=== PATIENT | female | born 1950 | race Caucasian/White ===

== ENCOUNTER → 2016-09-10 | Day surgery (SDC) | payer MEDICARE, OTHER ==
--- NOTE | 2016-09-07 02:27 | CR ---
DATE OF CONSULTATION: 08/27/2016 Preoperative consultation for cataract extractions on 09/10/2015 and 09/24/[address] Mariee at [facility] ([facility]). Dear Dr. Mariee: Thank you for asking me to see Ms. Mireya Gilliland in consultation prior to her cataract extractions. As you know, Ms. Gilliland is a 66-year-old female with a past medical history of hypertension, prediabetes, obesity who reports that she has been in her usual state of good health. Patient notes that she has asthma. She is dyspneic with activity. She uses her Ventolin with exercise. She blames much of her dyspnea on her obesity and deconditioning. Patient has hypertension. She takes her hydrochlorothiazide every couple of days. She is on lisinopril 5 mg a day. She has an occasional palpitation but no associated lightheadedness or shortness of breath with this. Patient has history of allergies. She takes Zyrtec as needed. Patient has history of dry eyes. This is chronic and stable. The patient has prediabetes. She denies polyuria, polyphagia, or polydipsia. Her home blood sugars run 103-117 at the highest. Patient reports longstanding history of a heart murmur. She is not aware that it is pathologic. REVIEW OF SYSTEMS: Otherwise, negative. Denies fevers or chills, chest pain, nausea, vomiting, change in bowels. PAST MEDICAL HISTORY: 1. Osteoarthritis. 2. Bursitis left shoulder status post cortisone injection. 3. Menopausal. Last menstrual period (LMP) 03/1998. 4. Left meniscal repair, Dr. Bender, 04/2000. 5. Appendectomy. 6. Prediabetes. 7. Osteopenia. 8. Hyperlipidemia. 9. Hypertension. 10. Anxiety neurosis. 11. Osteopenia. 12. Moderate restrictive ventilatory defect 07/22/2011 with an FEV1 of 62% with a 5% improvement in FEV1 with bronchodilator. MEDICATIONS: - acetaminophen as needed - calcium plus D daily - hydrochlorothiazide 25 mg a half a day as needed - lisinopril 5 mg nightly - magnesium daily - multivitamin daily - ProAir two puffs four times a day as needed - vitamin D3, 5000 international units daily ALLERGIES: To PENICILLIN and ALEVE. SOCIAL HISTORY: Former smoker; quit 08/1989, after smoking a half a pack for 17 years. Occasional alcohol, 10 drinks a year. 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 . Two adult daughters. is retired. FAMILY HISTORY: Father at 79 of motor vehicle accident; he had abdominal aortic aneurysm, hypertension, coronary artery disease (CAD), glaucoma, macular degeneration. Mother at 66; she had chronic obstructive pulmonary disease (COPD), lung cancer. Two brothers have hypertension. Grandparents had Parkinson's, strokes. PHYSICAL EXAM: Obese female in no acute distress. Vital Signs: Weight 260, blood pressure 142/70, heart rate of 76, oxygen saturation after exertion is 94%. Her body mass index (BMI) is 44. HEENT: Head is normocephalic. Neck is supple. Pupils equal, reactive to light. Extraocular movements are intact. She does wear eyeglasses. There is no thyromegaly, cervical lymphadenopathy, or jugular venous distention (JVD). Oropharynx benign. Tympanic membranes slightly dull; scant amount of cerumen. Respiratory: Slight decrease in breath sounds. No expiratory wheezes. Cardiovascular: Regular rate, rhythm. 3/6 systolic murmur. Abdomen: Obese, soft, nontender. A 3-4 cm umbilical hernia, nontender. Gynecological (HOCKEY SCOUT): Deferred. Breast Exam: Deferred. Extremities: Trace pretibial edema. She does have varicose veins. LABORATORY DATA: 08/20/2016, normal hemoglobin. Med profile with sugar of 131. Normal liver. Elevated collagen/ADP. EKG 08/20/2016 shows normal sinus rhythm, rate of 84, left axis deviation at -45 degrees consistent with left anterior fascicular block, which is new compared to previous EKG. Chest x-ray 08/20/2016: Borderline heart size, degenerative changes in the thoracic spine. IMPRESSION: Ms. Mireya Gilliland, 66-year-old female with cardiovascular risk factors positive for obesity, hypertension, hyperglycemia, has systolic murmur, new EKG finding, dyspnea on exertion. Patient had felt dyspnea was related to her underlying asthma. She uses a bronchodilator with exercise and cold weather. I have recommended further evaluation and treatment with spirometry as well as a stress echocardiogram. Patient is agreeable. This will be set up prior to her surgical intervention. FURTHER RECOMMENDATIONS: 1. Hypertension. She will hold her hydrochlorothiazide morning of surgery. Lisinopril will be increased today to 10 mg nightly, and she will take this the evening prior to surgery. 2. Dyspnea, chronic obstructive pulmonary disease versus asthma. Update spirometry. Known previous smoker. No significant improvement last spirometry with bronchodilator. Proceed with spirometry. Consider long-acting medications. She is no longer smoking. Certainly, exercise, weight loss plan is in order. I have approved her taking bronchodilator morning of surgery. 3. Allergies. Zyrtec, she only uses as needed 4. Obesity. Diet, exercise advised. 5. Hyperglycemia. Diet, exercise, carbohydrate restriction. 6. New EKG change. Proceed with stress echocardiogram. She also has a history of some palpitations and a systolic murmur. 7. Abnormal collagen studies, expect related to patient's use of aspirin. Will not test any further, but recommended no further aspirin or nonsteroidal anti-inflammatory drugs (NSAIDs). 8. Osteoarthritis (OA), degenerative joint disease (DJD). Approved use of Tylenol perioperatively. Thank you very much for this consultation. I have also recommended flu shot. Please call with any questions or concerns.
--- NOTE | 2016-09-08 18:55 | CR ---
DATE OF CONSULTATION: 09/08/2016 THIS IS AN ADDENDUM to PREVIOUS CONSULTATION Dear Dr. Mariee: I had the pleasure of seeing Ms. Mireya Gilliland in followup to her preoperative consultation from 08/27/2016, at which time her lisinopril was increased, spirometry was ordered, as well as stress echo. The patient reports no difficulties with lisinopril 10 mg a day. In fact, palpitations have been less. She is taking at bedtime. She has not developed cough and is not oversedated. She has not checked home blood pressures The patient was contacted after her spirometry which was consistent with chronic obstructive pulmonary disease (COPD) with moderate restrictive disease. Anoro Ellipta was recommended. She has taking this for four days and questions whether her breathing is not already slightly better. She feels much of her dyspnea is probably related to deconditioning and weight gain. The patient does have hydrochlorothiazide. She takes this as needed for edema but is hesitant to take it if she must go out in the morning and do errands. The patient otherwise denies any new fevers or chills, chest pain or shortness of breath. Her medication list is reviewed and updated. As above, lisinopril was increased to 10 mg a day, and inhaler Anoro Ellipta have been added. PHYSICAL EXAMINATION GENERAL: No acute distress. VITAL SIGNS: As documented. Weight is 260, blood pressure improved at 118/82. Her heart rate is 70. Oxygen saturation is 93% after exertion. HEENT: Examination is benign. RESPIRATORY: Clear to auscultation. No wheezing or rhonchi. CARDIOVASCULAR: Regular rate and rhythm, soft systolic murmur. ABDOMEN: Obese, soft, nontender. EXTREMITIES: No pitting edema. LABORATORY DATA: Pulmonary function testing from 09/03/2016, shows FVC of 1.81 liters, 58% of predicted with only 6% improvement with bronchodilator. FEV-1 was 1.37 liters, 57% of predicted with only a 4% improvement after bronchodilator. Patient is felt to have moderate restrictive lung defect. Updated EKG from 09/08/2016, shows normal sinus rhythm, rate of 70, axis of minus 30 degrees, normal [place], QRS, QTC interval, nonspecific ST-T wave changes, improved compared to her last EKG at [facility] ([facility] IMPRESSION Ms. Mireya Gilliland is a 66-year-old female with history of hypertension, chronic obstructive pulmonary disease (COPD). Is felt to be safe to proceed with cataract extractions as recommended per Dr. Mariee. in this and see over a FURTHER RECOMMENDATIONS: 1. Hypertension. Optimized today. Continue lisinopril 10 mg at bedtime including prior to surgical intervention. 2. Dyspnea. As documented above by spirometry, has moderately advanced COPD. Has been placed on long-acting inhaled therapy and encouraged to use her ProAir including a.m. of surgery. The patient's FEV-1 over one liter. She is felt to be safe to proceed with low risk cataract surgery. However, because the degree of her restrictive lung disease is more than expected for the amount she has smoked, I have recommended further evaluation with pulmonary consultation long-term. 3. Longstanding systolic murmur. Echo has been ordered but we were unable to schedule prior to surgical intervention. Murmur has been longstanding and it is felt to be safe to proceed with surgical intervention. 4. Left anterior fascicular block, not evident on today's EKG. Continue higher dose of lisinopril and long-term will evaluate further with cardiac testing. Safe to proceed with low risk cataract surgery. Thank you very much for this consultation. Please call with any questions or concerns.
[~2016-09-10] VITALS: Ht 165.1 cm; Wt 115.7 kg
[~2016-09-10] MED LIST: ACET50TAOT PO; ACETYLCHOLINE OPHTH SOLN 1% 2ML As Ordered ONE; ACETYLCHOLINE OPHTH SOLN 1% 2ML XX ONE; ASPI81TA85 PO; BALANCED SALT IRRIGATION SOLUTION 500ML BAG (FOR OR EYE MACHINE) As Ordered ONE; BALANCED SALT IRRIGATION SOLUTION 500ML BAG (FOR OR EYE MACHINE) XX ONE; CEFUROXIME 1MG/0.1ML INTRACAMERAL INJ XX ONE; HEALON DUET (HEALON 10MG/ML 0.55ML & HEALON ENDOCOAT 30MG/ML 0.85ML) As Ordered ONE; HEALON DUET (HEALON 10MG/ML 0.55ML & HEALON ENDOCOAT 30MG/ML 0.85ML) XX ONE; HYDR12CA PO; LIDOCAINE 0.75%/EPINEPHRINE 0.025% IN BSS 1ML SYR INTRACAMERAL (OR ONLY) XX ONE; LIDOCAINE 1% SDV 5 ML VIAL As Ordered ONE; LIDOCAINE 1% SDV 5 ML VIAL XX ONE; LIDOCAINE 4% INJ 5 ML AMP OU ONE; LIDOCAINE 4% INJ 5 ML AMP XX ONE; LISI10TA4 PO; MAGN250T9 PO; MIDAZOLAM INJ 2 MG/2 ML VIAL (J2250) As Ordered ONE; OFLOXACIN 0.3 % (OCUFLOX) OPTH SOL 5ML OS ONE; PHENYLEPHRINE 2.5% OPHTH SOL 2ML OS ONE; POVIDONE-IODINE 5% OPHTH PREP SOL 30ML As Ordered ONE; PROA1AER INH; PROPARACAINE 0.5% OPHTH SOL 15ML OS ONE; REFR0.5D8 OU; TOBRADEX OPHTH OINT 3.5 GM As Ordered ONE; TOBRADEX OPHTH OINT 3.5 GM XX ONE; TROPICAMIDE 1% OPHTH SOLN 2 ML OS ONE; VITA100037 PO; ZYRT10CA PO; fentaNYL 100 MCG/2 ML INJECTION (J3010) As Ordered ONE
[2016-09-10 09:50] LABS: COLLAGEN ADP 157 SECONDS (56-103)
[2016-09-10 11:25] VITALS: BP 167/85
--- NOTE | 2016-09-12 10:48 | RO ---
DATE OF PROCEDURE: 09/10/2016 PREOPERATIVE DIAGNOSIS: Visually significant nuclear sclerotic cataract left eye. POSTOPERATIVE DIAGNOSIS: Visually significant nuclear sclerotic cataract left eye. PROCEDURE: Cataract extraction with use of phacoemulsification and placement of intraocular lens ZCB00 17.5 diopters, left eye. SURGEON: Brad Mariee DO SCALER: ANESTHESIA: Local with monitored anesthesia care (MAC). COMPLICATIONS: None. POSTOPERATIVE CONDITION: Stable. INDICATION FOR SURGERY: Blurred vision left eye affecting patient's activities of daily living. DESCRIPTION OF PROCEDURE: The patient was seen in the preoperative area and properly identified. The correct operative eye was identified and marked. Attention was turned to that eye. The patient received topical antibiotics in the preoperative area. The patient then received topical dilating drops consisting of tropicamide and phenylephrine. The patient was then transferred to the operating room. The correct side was reidentified. The patient received topical anesthetics and antibiotics on the surface of the eye. The eye was prepped and draped in a sterile fashion. The upper and lower eyelids were isolated with Tegaderm tape, and the lids were held open with an adjustable speculum. Using a sideport blade, a paracentesis incision was made. Intraocular preservative-free lidocaine was then injected into the anterior chamber. Viscoelastic was then injected into the anterior chamber through the paracentesis. Using a 2.75 mm sharp-tipped keratome, the anterior chamber was entered via a temporal clear corneal incision. A continuous curvilinear capsulorrhexis was created with the aid of a 26-gauge cystotome and Utrata forceps. Hydrodissection was performed with balanced salt solution (BSS) on a blunt cannula until the nucleus was freely mobile. The crystalline lens was phacoemulsified and aspirated. Additional cohesive viscoelastic was placed into the capsular bag to deepen it. A ZCB00, 17.5 diopter lens was placed into the capsular bag and confirmed by visualizing the continuous curvilinear capsulorrhexis. Additional irrigation and aspiration was used to remove cortical material and remaining viscoelastic. The clear corneal incision was hydrated with BSS on a blunt cannula. The lens was well positioned. The incisions were then tested for leaks and found to be negative. The eye was then palpated for appropriate pressure and adjusted accordingly with BSS. Several drops of antibiotics and Iopidine were placed in the eye. The eyelid speculum was then carefully removed. Maxitrol ointment was placed in the eye. An eye patch and shield were then secured over the eye. The patient tolerated the procedure well and was discharged to the recovery unit in a stable condition.
== END | disposition home or self-care (01) ==
LOC: M SDC 08:41
PROVIDERS: ATTEND Ophthalmology
DX: H25.12 Age-related nuclear cataract, left eye (principal); H40.9 Unspecified glaucoma; I10 Essential (primary) hypertension; J45.909 Unspecified asthma, uncomplicated; R01.1 Cardiac murmur, unspecified; I44.4 Left anterior fascicular block; M19.90 Unspecified osteoarthritis, unspecified site; R60.0 Localized edema; Z87.891 Personal history of nicotine dependence; Z88.0 Allergy status to penicillin; Z79.899 Other long term (current) drug therapy; Z79.51 Long term (current) use of inhaled steroids
CPT/HCPCS: 36415; 66984; 85576; J2250; J3010; V2632

== ENCOUNTER → 2016-09-24 | Day surgery (SDC) | payer MEDICARE, OTHER ==
[~2016-09-24] VITALS: Ht 165.1 cm; Wt 115.2 kg
[~2016-09-24] MED LIST changes: +CEFUROXIME 1MG/0.1ML INTRACAMERAL INJ As Ordered ONE; -CEFUROXIME 1MG/0.1ML INTRACAMERAL INJ XX ONE; -HEALON DUET (HEALON 10MG/ML 0.55ML & HEALON ENDOCOAT 30MG/ML 0.85ML) XX ONE; +LIDOCAINE 0.75%/EPINEPHRINE 0.025% IN BSS 1ML SYR INTRACAMERAL (OR ONLY) As Ordered ONE; -LIDOCAINE 1% SDV 5 ML VIAL XX ONE; +LIDOCAINE 4% INJ 5 ML AMP As Ordered ONE; -LIDOCAINE 4% INJ 5 ML AMP XX ONE; +OFLOXACIN 0.3 % (OCUFLOX) OPTH SOL 5ML OD ONE; -OFLOXACIN 0.3 % (OCUFLOX) OPTH SOL 5ML OS ONE; +OFLOXACIN 0.3 % (OCUFLOX) OPTH SOL 5ML XX ONE; +PHENYLEPHRINE 2.5% OPHTH SOL 2ML OD ONE; -PHENYLEPHRINE 2.5% OPHTH SOL 2ML OS ONE; +PHENYLEPHRINE 2.5% OPHTH SOL 2ML XX ONE; +PROPARACAINE 0.5% OPHTH SOL 15ML OD ONE; -PROPARACAINE 0.5% OPHTH SOL 15ML OS ONE; +PROPARACAINE 0.5% OPHTH SOL 15ML XX ONE; +TETRACAINE 0.5% OPHTH SOLN 2 ML As Ordered ONE; -TOBRADEX OPHTH OINT 3.5 GM XX ONE; +TROPICAMIDE 1% OPHTH SOLN 2 ML OD ONE; -TROPICAMIDE 1% OPHTH SOLN 2 ML OS ONE; +TROPICAMIDE 1% OPHTH SOLN 2 ML XX ONE
--- NOTE | 2016-09-25 07:31 | RO ---
DATE OF PROCEDURE: 09/24/2016 PREOPERATIVE DIAGNOSIS: Visually significant nuclear sclerotic cataract right eye. POSTOPERATIVE DIAGNOSIS: Visually significant nuclear sclerotic cataract right eye. PROCEDURE: Cataract extraction with use of phacoemulsification and placement of intraocular lens ZCB00, 15.5 diopter right eye. SURGEON: Brad Mariee DO KEG FILLER: ANESTHESIA: Local with monitored anesthesia care (MAC). COMPLICATIONS: None. POSTOPERATIVE CONDITION: Stable. INDICATION FOR SURGERY: Blurred vision right eye affecting patient's activities of daily living. DESCRIPTION OF PROCEDURE: The patient was seen in the preoperative area and properly identified. The correct operative eye was identified and marked. Attention was turned to that eye. The patient received topical antibiotics in the preoperative area. The patient then received topical dilating drops consisting of tropicamide and phenylephrine. The patient was then transferred to the operating room. The correct side was reidentified. The patient received topical anesthetics and antibiotics on the surface of the eye. The eye was prepped and draped in a sterile fashion. The upper and lower eyelids were isolated with Tegaderm tape, and the lids were held open with an adjustable speculum. Using a sideport blade, a paracentesis incision was made. Intraocular preservative-free lidocaine was then injected into the anterior chamber. Viscoelastic was then injected into the anterior chamber through the paracentesis. Using a 2.65 mm sharp-tipped keratome, the anterior chamber was entered via a temporal clear corneal incision. A continuous curvilinear capsulorrhexis was created with the aid of a 26-gauge cystotome and Utrata forceps. Hydrodissection was performed with balanced salt solution (BSS) on a blunt cannula until the nucleus was freely mobile. The crystalline lens was phacoemulsified and aspirated. Additional cohesive viscoelastic was placed into the capsular bag to deepen it. A ZCB00, 15.5 diopter lens was placed into the capsular bag and confirmed by visualizing the continuous curvilinear capsulorrhexis. Additional irrigation and aspiration was used to remove cortical material and remaining viscoelastic. The clear corneal incision was hydrated with BSS on a blunt cannula. The lens was well positioned. The incisions were then tested for leaks and found to be negative. The eye was then palpated for appropriate pressure and adjusted accordingly with BSS. Several drops of antibiotics and Iopidine were placed in the eye. The eyelid speculum was then carefully removed. Maxitrol ointment was placed in the eye. An eye patch and shield were then secured over the eye. The patient tolerated the procedure well and was discharged to the recovery unit in a stable condition. JB
== END | disposition home or self-care (01) ==
LOC: M SDC 06:15
PROVIDERS: ATTEND Ophthalmology
DX: H25.11 Age-related nuclear cataract, right eye (principal); H40.9 Unspecified glaucoma; I10 Essential (primary) hypertension; E11.9 Type 2 diabetes mellitus without complications; J44.9 Chronic obstructive pulmonary disease, unspecified; J45.909 Unspecified asthma, uncomplicated; M19.90 Unspecified osteoarthritis, unspecified site; R06.00 Dyspnea, unspecified; R01.1 Cardiac murmur, unspecified; R94.31 Abnormal electrocardiogram [ECG] [EKG]; R60.0 Localized edema; R06.83 Snoring; Z88.0 Allergy status to penicillin; Z88.8 Allergy status to other drugs, medicaments and biological substances; Z79.899 Other long term (current) drug therapy; Z79.82 Long term (current) use of aspirin; Z88.6 Allergy status to analgesic agent
CPT/HCPCS: 66984; J2250; J3010; V2632

== ENCOUNTER → 2017-01-20 | Outpatient (REF) | payer MEDICARE, OTHER ==
[~2017-01-20] MED LIST changes: -ACETYLCHOLINE OPHTH SOLN 1% 2ML As Ordered ONE; -ACETYLCHOLINE OPHTH SOLN 1% 2ML XX ONE; -BALANCED SALT IRRIGATION SOLUTION 500ML BAG (FOR OR EYE MACHINE) As Ordered ONE; -BALANCED SALT IRRIGATION SOLUTION 500ML BAG (FOR OR EYE MACHINE) XX ONE; -CEFUROXIME 1MG/0.1ML INTRACAMERAL INJ As Ordered ONE; -HEALON DUET (HEALON 10MG/ML 0.55ML & HEALON ENDOCOAT 30MG/ML 0.85ML) As Ordered ONE; -LIDOCAINE 0.75%/EPINEPHRINE 0.025% IN BSS 1ML SYR INTRACAMERAL (OR ONLY) As Ordered ONE; -LIDOCAINE 0.75%/EPINEPHRINE 0.025% IN BSS 1ML SYR INTRACAMERAL (OR ONLY) XX ONE; -LIDOCAINE 1% SDV 5 ML VIAL As Ordered ONE; -LIDOCAINE 4% INJ 5 ML AMP As Ordered ONE; -LIDOCAINE 4% INJ 5 ML AMP OU ONE; -MIDAZOLAM INJ 2 MG/2 ML VIAL (J2250) As Ordered ONE; -OFLOXACIN 0.3 % (OCUFLOX) OPTH SOL 5ML OD ONE; -OFLOXACIN 0.3 % (OCUFLOX) OPTH SOL 5ML XX ONE; -PHENYLEPHRINE 2.5% OPHTH SOL 2ML OD ONE; -PHENYLEPHRINE 2.5% OPHTH SOL 2ML XX ONE; -POVIDONE-IODINE 5% OPHTH PREP SOL 30ML As Ordered ONE; -PROPARACAINE 0.5% OPHTH SOL 15ML OD ONE; -PROPARACAINE 0.5% OPHTH SOL 15ML XX ONE; -TETRACAINE 0.5% OPHTH SOLN 2 ML As Ordered ONE; -TOBRADEX OPHTH OINT 3.5 GM As Ordered ONE; -TROPICAMIDE 1% OPHTH SOLN 2 ML OD ONE; -TROPICAMIDE 1% OPHTH SOLN 2 ML XX ONE; -fentaNYL 100 MCG/2 ML INJECTION (J3010) As Ordered ONE
[2017-01-23 14:11] LABS: RENIN LEVEL 0.286 ng/mL/hr (0.167-5.380)
== END ==
LOC: M LAB REF 13:09
PROVIDERS: ATTEND Internal Medicine
DX: D35.00 Benign neoplasm of unspecified adrenal gland (principal); I10 Essential (primary) hypertension

== ENCOUNTER → 2017-03-25 | Outpatient (CLI) | payer MEDICARE, OTHER ==
[~2017-03-25] MED LIST changes: -PROA1AER INH; +PROAAER10 INH; -VITA100037 PO; +VITA100067 PO
--- NOTE | 2017-03-31 21:49 | SLEEPCENT ---
DATE OF PROCEDURE: 03/25/2017 REFERRING PHYSICIAN: Yanet Fernandez Nocturnal polysomnography was performed for evaluation of sleep physiology in this patient with a history of excessive somnolence and snoring with a comorbidity of hypertension and obesity. 7 hours and 40 minutes of data were reviewed. There were 357 minutes of sleep identified. Sleep latency was prolonged at 46 minutes. Rapid eye movement (REM) latency was prolonged at 189 minutes. Sleep architecture showed fragmentation. There were two REM periods appreciated. Overall sleep efficiency was 79%, but there was reduction in REM time and little N3 sleep seen. The patient's EKG showed a baseline sinus rhythm with an average heart rate of 66 beats per minute. Some rate variability was seen particularly around respiratory events. Rate ranged 50 to 80 beats per minute. EEG showed some coarsening in background. No focal events were seen. There were 53 respiratory events identified of 10 seconds of duration or greater for an apnea-hypopnea index of 8.9. The events were primarily obstructive, not exclusive to sleep stage, but REM clustering was seen. There was no postural relationship. Respiratory events were associated with arousal time, five times per hour and oxygen desaturations to the 80s. There was some limb activity but no true trains of events. Limb movement arousal index was borderline at 5.4. IMPRESSION: Mild obstructive sleep apnea syndrome (G47.33). Apnea/hypopnea index 8.9. RECOMMENDATION: The patient should be encouraged to return to the sleep disorder center for pressure therapy. In the interim, alcohol and sedative avoidance should be practiced and caution exercised during the operation of motor vehicles.
== END ==
LOC: M SLEEP 19:40
PROVIDERS: ATTEND Internal Medicine Pulmonary Disease
DX: G47.33 Obstructive sleep apnea (adult) (pediatric) (principal)

== ENCOUNTER → 2017-05-13 | Outpatient (CLI) | payer MEDICARE, OTHER ==
--- NOTE | 2017-05-14 20:54 | SLEEPCENT ---
DATE OF PROCEDURE: 05/13/2017 REFERRING PHYSICIAN: Yanet Fernandez Nocturnal polysomnography was performed for the titration of pressure therapy in this patient with obstructive sleep apnea syndrome, apnea/hypopnea index of 8.9. For testing, a ResMed Quattro full face mask of extra-small size was used. 4 cm of water pressure were initially applied to the circuit and the lights were extinguished. 8 hours and 16 minutes of data were reviewed. There were 289 minutes of sleep identified. Sleep latency was prolonged at 180 minutes. Rapid eye movement (REM) latency was normal at 64 minutes. Sleep architecture improved with optimal pressure therapy. Overall sleep efficiency was 59.8% due to the prolonged latency. The patient's EKG showed a sinus rhythm with an average heart rate of 66 beats per minute. EEG showed normal waveforms for awake and sleep. Respiratory events were best palliated with CPAP at a pressure of +10. Further increases in pressure were attempted due to persistence of snoring. Overall, in retrospect, optimal sleep was seen at a CPAP pressure of +10. There was minimal limb activity and remaining measures of sleep physiology were normal. IMPRESSION: Obstructive sleep apnea syndrome (G47.33). RECOMMENDATION: Nightly use of pressure therapy at 10 cm of water.
== END ==
LOC: M SLEEP 19:38
PROVIDERS: ATTEND Internal Medicine Pulmonary Disease
DX: G47.33 Obstructive sleep apnea (adult) (pediatric) (principal)

== ENCOUNTER → 2017-08-10 | Outpatient (CLI) | payer MEDICARE, OTHER ==
--- NOTE | 2017-08-10 13:00 | REPMRS ---
Patient History The patient states she had a clinical breast exam in 03/2017. Patient is postmenopausal. No known family history of cancer. Took hormonal contraceptives for 1 year. Took estrogen for 6 months. Took progesterone for 6 months. Digital Woman Screen Mammo: August 10, 2017 - Exam #: [id number] Bilateral CC and MLO view(s) were taken. Technologist: Inez Levine, Technologist Prior study comparison: August 10, 2016, digital woman screen mammo performed at [facility]. July 15, 2015, digital woman screen mammo performed at [facility]. FINDINGS: There are scattered fibroglandular densities. There has been no change in the appearance of the mammogram from the prior studies. There is a mild amount of residual fibroglandular tissue which is fairly symmetric. There is no interval development of dominant mass, architectural distortion, or clustered microcalcification suggestive of malignancy. Scattered lymph nodes are seen in the axillae. No significant changes when compared with prior studies. ASSESSMENT: BI-RADS/ACR category 2 mammogram. Benign finding(s). Recommendation Routine screening mammogram in 1 year (for women over age 40). This mammogram was interpreted with the aid of an FDA-approved computer-aided dectection system. A. Negative x-ray reports should not delay biopsy if a dominant or clinically suspicious mass is present. B. Four to eight percent of cancers are not identified by mammography. C. Adenosis and dense breast may obscure an underlying neoplasm. Electronically Signed By: Pankaj Keita MD 08/10/17 [id number]
--- NOTE | 2017-08-12 15:06 | DEXA ---
AP SPINE L1 - L4 1.070 -1.0 0.6 LT FEMUR TOTAL 1.060 0.4 1.7 RT FEMUR TOTAL 1.062 0.4 1.7 TOTAL BODY TOTAL OTHER COMMENTS: Normal bone densitometry of the left hip. Normal bone densitometry of the right hip. There is low bone density of the spine. The increased density of the spine does represent a significant change since . The decreased density of the left hip does represent a significant change since 07/03/2013. The decreased density of the right hip does represent a significant change since 07/03/2013. The density of the spine has increased 10.1% since the initial exam on 2005. The spine density has increased 5.8% since the most recent exam on 07/03/2013. The density of the left hip has decreased 4.8% since the initial exam on 2005. The density of the left hip has decreased 5.4% since the most recent exam on . The density of the right hip has decreased 1.9% since the initial exam on 2005. The density of the right hip has decreased 5.6% since the most recent exam on . FOLLOW-UP: Recommendation for the next bone density exam: 2 years. JB
== END ==
LOC: M WHC 09:22
PROVIDERS: ATTEND Internal Medicine
DX: M85.851 Other specified disorders of bone density and structure, right thigh (principal); M85.852 Other specified disorders of bone density and structure, left thigh; Z12.31 Encounter for screening mammogram for malignant neoplasm of breast
CPT/HCPCS: 77080; G0202

== ENCOUNTER → 2017-09-16 | Outpatient (REF) | payer MEDICARE, OTHER | LOC: M SFHCWAGY 10:41 | DX: Z12.4 Encounter for screening for malignant neoplasm of cervix (principal) | CPT/HCPCS: G0123 ==

== ENCOUNTER → 2018-08-15 | Outpatient (CLI) | payer MEDICARE, OTHER | LOC: M WHC 08:19 | DX: Z12.31 Encounter for screening mammogram for malignant neoplasm of breast (principal) | CPT/HCPCS: 77067 ==

== ENCOUNTER → 2018-10-18 | Outpatient (REF) | payer MEDICARE, OTHER ==
[~2018-10-18] MED LIST changes: +ACET500T15 PO; -ACET50TAOT PO
== END ==
LOC: M LAB REF 12:22
PROVIDERS: ATTEND Internal Medicine
DX: D35.00 Benign neoplasm of unspecified adrenal gland (principal); I10 Essential (primary) hypertension

== ENCOUNTER → 2018-11-21 | Outpatient (REF) | payer MEDICARE, OTHER | LOC: M LAB REF 16:51 | PROVIDERS: ATTEND Internal Medicine | DX: D35.00 Benign neoplasm of unspecified adrenal gland (principal) ==

== ENCOUNTER → 2019-09-14 | Outpatient (CLI) | payer MEDICARE, OTHER ==
--- NOTE | 2019-09-14 11:05 | REPMRS ---
Patient History The patient states she had a clinical breast exam in 2018. No known family history of cancer. Took hormonal contraceptives for 1 year. Took estrogen for 6 months. Took progesterone for 6 months. Digital Woman Screen Mammo: September 14, 2019 - Exam #: [id number] Bilateral CC and MLO view(s) were taken. Technologist: Isabella Dickens, Technologist Prior study comparison: August 15, 2018, bilateral digital woman screen mammo performed at [facility]. August 10, 2017, digital woman screen mammo performed at [facility]. August 10, 2016, digital woman screen mammo performed at [facility]. FINDINGS: There are scattered fibroglandular densities. There has been no change in the appearance of the mammogram from the prior studies. There is a mild amount of scattered fibroglandular density which is fairly symmetric. There is no interval development of dominant mass, architectural distortion, or grouped microcalcification suggestive of malignancy. 3-D tomosynthesis shows no additional findings. Assessment: BI-RADS/ACR category 1 mammogram. Negative Mammogram. Recommendation Routine screening mammogram of both breasts in 1 year (for women over age 40). This patient's Lifetime Breast Cancer Risk is estimated at 5.2 %. This mammogram was interpreted with the aid of an FDA-approved computer-aided dectection system. Electronically Signed By: Nixon Rivera MD 09/14/19 [id number]
== END ==
LOC: M WHC 09:29
PROVIDERS: ATTEND Internal Medicine
DX: Z12.31 Encounter for screening mammogram for malignant neoplasm of breast (principal)

== ENCOUNTER 2020-03-05 11:53 | Day surgery (SDC) | payer MEDICARE, OTHER ==
[~2020-03-05] VITALS: Ht 162.6 cm; Wt 116.5 kg
[~2020-03-05 11:53] MED LIST changes: +AMIODARONE 150MG/3ML INJ (J0282) As Ordered ONE; -ASPI81TA85 PO; +ASPI81TA86 PO; +BACITRACIN PWD 50,000 UNITS VIAL As Ordered ONE; -CETI10CA2 PO; -FLUT50SP33; +ISOVUE-300 61% 50ML VIAL As Ordered ONE; -KETO5DRO27 OP; +LIDOCAINE 1% SDV 30ML VIAL As Ordered ONE; -PANT40TA3 PO; -REFR0.5D8 OP; -REST0.057 OP
[2020-03-05] MEDS ORDERED: CETI10CA2 PO (12:16)
[2020-03-05] MEDS ORDERED: REST0.057 OP (12:16)
[2020-03-05] MEDS ORDERED: REFR0.5D8 OP (12:16)
[2020-03-05] MEDS ORDERED: PROAAER10 INH (12:16)
[2020-03-05] MEDS ORDERED: KETO5DRO27 OP (12:16)
[2020-03-05] MEDS ORDERED: PANT40TA29 PO (12:16)
[2020-03-05] MEDS ORDERED: FLUT50SP33 (12:16)
[2020-03-05] MEDS ORDERED: VANCOMYCIN HCL 1,000 MG, VIAL MATE ADAPTER 1 EACH in D5W 250 ML IV ONE ×2 (13:00→16:00)
[2020-03-05] MEDS ORDERED: fentaNYL 100 MCG/2 ML INJECTION (J3010) As Ordered ONE (13:38)
[2020-03-05] MEDS ORDERED: LIDOCAINE 2% 100MG/5ML SDV (FOR ANES.) As Ordered ONE (13:38)
[2020-03-05] MEDS ORDERED: MIDAZOLAM INJ 2MG/2ML VIAL (J2250 PER 1MG) As Ordered ONE (13:38)
[2020-03-05] MEDS ORDERED: ONDANSETRON 4MG/2ML VIAL As Ordered ONE (13:38)
[2020-03-05] MEDS ORDERED: propofoL 200 MG/20 ML VIAL As Ordered ONE ×2 (13:38→14:16)
[2020-03-05] MEDS ORDERED: traMADol 50 MG TAB PO PRN (14:45)
[2020-03-05] MEDS ORDERED: IPRATROPIUM 0.5MG/ALBUTEROL 2.5MG INH SOL UD 3ML (DUONEB) NEB PRN (15:00)
--- NOTE | 2020-03-05 15:06 | REP ---
Clinical: Pacemaker placement. Comparison: 08/10/2016 Findings: Stable cardiomegaly. Dual lead pacemaker overlies the left hemithorax with leads overlying the right atrium and right ventricle. Trace right basilar atelectasis cannot be excluded. No focal consolidation or obvious effusion. No pneumothorax. Skeletal structures intact. Impression: Satisfactory pacemaker placement. Cannot exclude trace right basilar atelectasis. Electronically Signed by Davi Uribe MD 03/05/2020 02:58 P
[2020-03-05 16:00] VITALS: BP 164/78
--- NOTE | 2020-03-05 16:00 | RO ---
DATE OF PROCEDURE: 03/05/2020 PROCEDURE: Implantation of permanent dual-chamber pacemaker implanting IMPLANTING ENTERPRISE APPLICATION ADMINISTRATOR: Dr. Anthony Conti. ANESTHESIOLOGIST: Dr. Christie PREOPERATIVE DIAGNOSIS: Recurrent near syncope/syncope with intermittent high-grade AV block. POSTOPERATIVE DIAGNOSIS: Recurrent near syncope/syncope with intermittent high-grade AV block. TYPE OF ANESTHESIA: Monitored local anesthesia. CLINICAL SUMMARY: This 69-year-old, mother of two grown children, retired resident of [place], [place] has a host of medical problems including obesity, hypertension, glucose intolerance, obstructive sleep apnea, and abnormal EKG with left anterior hemiblock and left ventricle hypertrophy. For the past few months, she has been having recurrent near syncope/syncope. A Holter monitor was performed on February 27, 2020 and showed underlying sinus rhythm with 214 pauses between QRS complexes of 2 seconds or more with a long distance 6.3 seconds related to intermittent second-degree AV block and type Mobitz type 1 and episodic high-grade AV block. There were relatively rare isolated PACs and PVCs. These episodes were symptomatic. A pacemaker was advised and she was seen in consultation by our service earlier today. No history of anginal chest pain but does have occasional heartburn. Longstanding effort dyspnea related to her weight and prior smoking history. Admits to noncompliance with her CPAP related to difficulty with her mask. Followed by Dr. Fred Swain. Long history of intermittent fleeting palpitations but no documented tachyarrhythmia. No known thyroid dysfunction. No history of embolic phenomenon or claudication. PHYSICAL EXAMINATION: On examination, she is obese barrel-chested, somewhat anxious, late middle-aged lady who laying comfortably with the head of bed elevated 30 degrees. Heart rate 76 beats per minute and regular, blood pressure 158/88 supine, respiratory rate 18, O2 saturation 94% on room air. Weight at 254 pounds, height 64.5 inches, BMI 42.9. No pallor or cyanosis. Neck veins were difficult to assess because of her body habitus. Increased anteroposterior chest diameter with reduced chest expansion. Large pendulous breasts. Fair air entry over both lung escobar with no abnormal adventitious sounds. Apical impulse not palpable. Heart sounds somewhat distant with S2 accentuation unable to detect S2, splitting S4 gallop systolic ejection murmur grade 2/6 maximally at the right base radiating to the neck. Normal carotid upstroke and volume. Transmitted bruit. 1 mm pitting edema, 1/2 to 2[address] up both lower legs. Few superficial venules. Pedal pulses were symmetrical and normal. No clubbing or peripheral cyanosis. Obese, soft abdomen. INVESTIGATIONS: EKG showed sinus rhythm at 72 bpm with left atrial conduction disturbance. Extreme left axis deviation - left anterior hemiblock. Incomplete left bundle branch block and prominent voltage in aVL consistent with LVH by Scar criteria. Obvious QS pattern in V1-V2 with Q-wave in V3, very suggestive of prior septal infarction. Slightly different precordial lead placement on prior [facility] EKG August 20, 2016. Her complete blood count was normal electrolytes were in balance with normal BUN and creatinine, random glucose 104. Ultra sensitive TSH was normal. Liver function studies were normal. BNP level was normal at 114. DESCRIPTION OF PROCEDURE: Following informed consent, the patient nothing by mouth, vancomycin was administered 1 gram of infusion over 1 hour. The patient was taken to the operating theater and numerous skin electrodes were applied to facilitate continuous electrocardiographic monitoring. Self-adhesive cardioverting/defibrillating/pacing patches were applied in the anteroposterior configuration and connected to a bedside cardioverter defibrillator/noninvasive pacing system. The left subclavian region was prepped and draped in usual fashion. The skin was infiltrated with 1% Xylocaine and the left axillary vein was catheterized using the Seldinger technique. A 5 cm linear incision was made several centimeters below and parallel to the left clavicle. Dissection was carried down to the level of the pectoralis fascia and the pocket was fashioned below the level of the incision line. Two bipolar screw-in active fixation steroid-eluting pacing leads were then positioned to the right ventricular apex and high right atrial appendage under fluoroscopic electrocardiographic control. The ventricular lead ([employer] model number LPA 1200M/58, serial number [id number]). Measurements were: Stimulation threshold 0.5, V/0.4 ms/impedance 870 ohms. The R wave amplitude measured 5.1 mV. The atrial lead ([employer] model number LPA 1200M/52, serial number [id number]). Measurements were focal and stimulation threshold 0.88, V/0.4 ms/impedance 534 ohms. The capital P wave amplitude measured 1.8 mV. These leads were secured in position with sleeves sutured at their insertion site. They were then connected to an MRI compatible dual-chamber pulse generator ([employer] ([employer]), model number KQ9612, serial number [id number]) and appropriate capital DDD pacing was documented. The pulse generator was placed in the pocket and secured in position with a suture through the right upper hand corner of the epoxy header. The subcutaneous tissues were approximated using a running chromic suture and skin was closed using gini. A dry dressing was applied. The patient was returned to the recovery room in good condition. Estimated blood loss less than 20 mL. No apparent complications. Postoperative portable upright chest x-ray showed good lead position with no pneumothorax. Her EKG showed sinus rhythm at 72 bpm with spontaneous AV conduction at this time. Appropriate pacer sensing and inhibition was documented. Our plan is to monitor her overnight and she will receive an additional dose of vancomycin 12 hours after her first preoperative dose. We anticipate she will be able to be discharged tomorrow morning.
[2020-03-05 18:00] VITALS: BP 130/62
[2020-03-05] MEDS: ACETAMINOPHEN TAB 650MG DOSE (2X325MG) PO PRN ×2 (18:49→23:56)
[2020-03-05] MEDS: IPRATROPIUM 0.5MG/ALBUTEROL 2.5MG INH SOL UD 3ML (DUONEB) NEB SCH (19:34)
--- NOTE | 2020-03-05 19:51 | PHACANCOPD ---
PHARMACY VANCOMYCIN DOSING Pt Demographics Demographics Patient Age:69 , Weight:114.760 , Gender: female Adjusted Body Weight Date: 03/05/20 Events Past 24 Hours Events Past 24 Hours: NO: Dialysis, Diuretic Therapy, Change in CrCl, Fever, Elevation in WBC, Pending Diagnostics, Pending Procedures, Other Vancomycin Vancomycin indication: surgical prophylaxis s/p pacemaker insertion Vancomycin Target Ranges: 15-20 mcg/ml Vancomycin Load Y/N: Yes Load Dose Date Time Vancomycin Load Dose: 2g Date: Time: 1g @1300 and 1g @1700 Vancomycin Dose Date: 03/05/20. Current Vancomycin Dose: 1250mg q12h starting at 0100 Intermittent Dosing?: No Labs Micro Microbiology 03/05/20 Respiratory Virus Panel (PCR) (PILI) - Final, Complete Creatinine Clearance Date:03/05/20. Creatinine Clearance: 62 Assessment and Plan Maintaining Current Dose?: Yes Reason for dose change: No Dose Change Pharmacist Note Pharmacist Note Date: 03/05/20. Pharmacist note: Vancomycin consult placed for patient s/p pacemaker insertion dual chamber. Patient does not have a history of vancomycin usage at [facility]. Calculated CrCl 77. Patient received 1G pre-op, scheduled another 1g @1700 for a complete loading dose of 2G. I then scheduled a maintenance dose of 1250mg q12h to start at 0100. Ordered a trough for 1200 on 03/07 before the 5th dose. I will continue to monitor this patient and adjust dose as needed. ABEL WILEY PHARMAC[facility] Mar 05, 2020 19:51
[2020-03-05 20:00] VITALS: BP 132/68
[2020-03-05] MEDS: DOCUSATE SODIUM 100 MG CAP PO SCH (20:02)
[2020-03-05] MEDS ORDERED: lisinopriL 40 MG TAB PO SCH (21:00)
[2020-03-06] VITALS: BP 116/54
[2020-03-06] MEDS ORDERED: VANCOMYCIN HCL 750 MG, VIAL MATE ADAPTER 1 EACH in D5W 250 ML IV SCH (01:00)
[2020-03-06] MEDS: IPRATROPIUM 0.5MG/ALBUTEROL 2.5MG INH SOL UD 3ML (DUONEB) NEB SCH ×2 (01:18→07:12)
[2020-03-06] MEDS ORDERED: VANCOMYCIN HCL 500 MG in D5W MINI-BAG PLUS 100 ML IV SCH (02:00)
[2020-03-06] MEDS ORDERED: VANCOMYCIN HCL 1,000 MG, VIAL MATE ADAPTER 1 EACH in D5W 250 ML IV SCH (03:00)
[2020-03-06 04:00] VITALS: BP 120/54
[2020-03-06 08:00] VITALS: BP 110/58
--- NOTE | 2020-03-06 08:27 | REP ---
Clinical: Status post pacemaker placement. Technique: PA and lateral. Comparison: 03/05/2020. Findings: Mediastinum and cardiac silhouette including pacemaker are in stable satisfactory position and appearance. Mild lower lobe atelectasis is again suggested. No obvious focal consolidation, effusion, or pneumothorax. Skeletal structures intact. Impression: Basilar atelectasis again suggested. Electronically Signed by Davi Uribe MD 03/06/2020 08:18 A
[2020-03-06] MEDS: DOCUSATE SODIUM 100 MG CAP PO SCH (08:42)
[2020-03-06] MEDS ORDERED: hydroCHLOROthiazide 12.5 MG CAPSULE PO SCH (09:00)
[2020-03-06] MEDS ORDERED: OMEPRAZOLE 20 MG CAP PO SCH (09:00)
[2020-03-06] MEDS ORDERED: CETIRIZINE (ZyrTEC) 10 MG TAB PO SCH (09:00)
[2020-03-06] MEDS ORDERED: MAGNESIUM OXIDE 400 MG TAB (MAG-OX) PO SCH (09:00)
--- NOTE | 2020-03-06 09:32 | IPN ---
CARDIOLOGY PROGRESS NOTE: DATE: 03/06/2020 SUBJECTIVE: The patient reports having some mild pressure/aching over her pacemaker site but does not feel this is markedly discerning. Has been up and walking without lightheadedness. Denies any other cardiovascular complaints. OBJECTIVE: Pleasant, obese late middle-aged woman sat and lay comfortably. Heart rate 83 bpm, blood pressure 120/54, respiratory rate 18 with oxygen saturation 97%. Weight 257 pounds. No pallor or icterus. Normal oral moisture and no central cyanosis. Increased anteroposterior chest diameter but normal respiratory rate. Her dressing was removed and showed minor erythema but no swelling or discharge from the incision site. 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 Had a single episode of 30 beats of pacemaker mediated tachycardia in recovery room yesterday. CHEST X-RAY: PA and left lateral study taken earlier this morning was reviewed independently and again shows obvious cardiomegaly with tortuosity of the thoracic aorta. Increased pulmonary markings related to her obesity. No clear localized infiltrate or pleural effusion. Her pulse generator is in the left subclavian region. Visualization of her pacing leads was challenging certainly from the lateral projection but appeared stable from the PA projection. No pneumothorax. ELECTROCARDIOGRAM: This shows again normal sinus rhythm at 84 bpm. Marked left axis deviation and prominent R wave in aVL with asymmetrical T wave inversion all consistent with LVH by Scar criteria. Slow precordial R wave progression with persistent S waves in V5 and V6 possibly related to left anterior hemiblock versus her body habitus/pulmonary disease. Appropriate atrial and ventricular sensing and inhibition was observed. PACEMAKER INTERROGATION: [employer] MRI compatible model number 2272 - showed acceptable intra-atrial and ventricular capture sensing signals with excellent pacing thresholds. The ventricular autocapture function has already been activated. We could not activate the intra-atrial auto capture function. We were able to reduce the atrial output to save battery voltage. In light of her documented pacemaker mediated tachycardia, we purposely induced this arrhythmia and adjusted her atrial sensing refractory period and post ventricular atrial blanking to prevent further bouts. This was tested successfully. IMPRESSION/PLAN: 1. Pacemaker mediated tachycardia: As mentioned above, appropriate modification to her atrial sensing refractory and post ventricular atrial blanking period successfully prevented further recurrence. 2. Intermittent high-grade AV block/dual-chamber pacemaker in situ: Has been free of further dizziness. Her incision is healing well. Chest x-ray confirms stable lead position. Complete interrogation today shows excellent pacing thresholds and acceptable intra-atrial signals. She has been encouraged to perform only light activities of daily living with her left arm until her gini are removed. Also requested she avoid getting her incision wet. She has an appointment to see us in 7-10 days. 3. Abnormal EKG: At this point, there has been no change - features in keeping with her hypertensive heart disease, body habitus and her conduction disturbance. We plan to obtain an objective assessment of her coronary prognosis with a pharmacological stress heart scan at some point in the near future. 4. Hypertensive heart disease (benign without heart failure): No current symptoms or signs of congestion. Present blood pressure is well-controlled on her present medications. At this point, she will be discharged home. No medication changes were made. These remain: Lisinopril 40 mg daily, hydrochlorothiazide 12.5 mg daily, magnesium oxide 250 mg daily, Protonix 40 mg daily, Flonase inhalation each nostril daily, Zyrtec 10 mg daily, albuterol inhaler 2 puffs four times a day as needed dyspnea, Tylenol 500 mg by mouth daily, Refresh eye drops and Restasis 0.05% eye drops each eye twice a day, as well as ketotifen fumarate eye drops 0.035% both eyes daily as needed.
--- NOTE | 2020-03-07 08:39 | ECGEPIP ---
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
--- NOTE | 2020-03-07 08:43 | ECGEPIP ---
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
== END 2020-03-06 11:09 | disposition home or self-care (01) ==
LOC: M SDC 11:53 → M PCU 15:45 → M SDC 03-06 11:09
PROVIDERS: ATTEND Internal Medicine Cardiovascular Disease
DX: R55 Syncope and collapse (principal); I44.1 Atrioventricular block, second degree; I48.91 Unspecified atrial fibrillation; I10 Essential (primary) hypertension; E78.5 Hyperlipidemia, unspecified; I42.9 Cardiomyopathy, unspecified; Z86.73 Personal history of transient ischemic attack (TIA), and cerebral infarction without residual deficits; M10.9 Gout, unspecified; E11.9 Type 2 diabetes mellitus without complications; Z79.01 Long term (current) use of anticoagulants; Z79.899 Other long term (current) drug therapy; Z88.0 Allergy status to penicillin; Z88.2 Allergy status to sulfonamides; Z88.8 Allergy status to other drugs, medicaments and biological substances
CPT/HCPCS: 33208; 36415; 71045; 71046; 76000; 80053; 83735; 83880; 84443; 85025; 87486; 87581; 87633; 87798; 93005; 94640; 96365; 96366; C1785; C1898; J2250; J2405; J3010; J3370

== ENCOUNTER → 2020-03-05 | Outpatient (CLI) | payer MEDICARE, OTHER ==
[~2020-03-05] MED LIST changes: +CETI10CA2 PO; +FLUT50SP33; +KETO5DRO27 OP; +PANT40TA3 PO; +REFR0.5D8 OP; +REST0.057 OP
[2020-03-05 11:03] LABS: BASO % 0.3 % (0.0-1.0); EOS % 0.7 % (0.0-3.0); HEMATOCRIT 46.8 % (36.0-47.0); HEMOGLOBIN 15.2 g/dl (12.0-15.5); LYMPH # 1.4 10^3/uL (1.5-5.0); LYMPH % 22.1 % (24.0-44.0); MEAN CORPUSCULAR HEMOGLOBIN 30.2 pg (27.0-33.0); MEAN CORPUSCULAR HGB CONC 32.5 g/dl (32.0-36.5); MEAN CORPUSCULAR VOLUME 92.9 fl (80.0-96.0); MONO # 0.6 10^3/uL (0.0-0.8); NEUTROPHILS # 4.1 10^3/uL (1.5-8.5); NEUTROPHILS % 67.7 % (36.0-66.0); PLATELET COUNT, AUTOMATED 229 10^3/uL (150-450); RED BLOOD COUNT 5.04 10^6/uL (4.00-5.40); WHITE BLOOD COUNT 6.1 10^3/uL (4.0-10.0)
[2020-03-05 11:46] LABS: ALBUMIN 3.9 GM/DL (3.2-5.2); ALT/SGPT 64 U/L (12-78); BILIRUBIN,TOTAL 0.6 MG/DL (0.2-1.0); BLOOD UREA NITROGEN 13 MG/DL (7-18); CALCIUM LEVEL 9.6 MG/DL (8.8-10.2); CARBON DIOXIDE LEVEL 28 MEQ/L (21-32); CHLORIDE LEVEL 104 MEQ/L (98-107); CREATININE FOR GFR 0.86 MG/DL (0.55-1.30); GLOMERULAR FILTRATION RATE > 60.0 (>45); GLUCOSE, FASTING 115 MG/DL (70-100); NT-PRO BNP 114 PG/ML (<125); POTASSIUM SERUM 3.8 MEQ/L (3.5-5.1); SODIUM LEVEL 138 MEQ/L (136-145); TOTAL PROTEIN 7.6 GM/DL (6.4-8.2)
== END ==
LOC: M LAB 10:02
PROVIDERS: ATTEND Internal Medicine Cardiovascular Disease
DX: I44.30 Unspecified atrioventricular block (principal); I11.9 Hypertensive heart disease without heart failure; R94.31 Abnormal electrocardiogram [ECG] [EKG]; G47.33 Obstructive sleep apnea (adult) (pediatric); Z68.41 Body mass index [BMI] 40.0-44.9, adult

== ENCOUNTER → 2020-10-15 | Outpatient (CLI) | payer MEDICARE, OTHER ==
[~2020-10-15] MED LIST changes: -AMIODARONE 150MG/3ML INJ (J0282) As Ordered ONE; -BACITRACIN PWD 50,000 UNITS VIAL As Ordered ONE; +CETI10CA2 PO; +FLUT50SP33; -ISOVUE-300 61% 50ML VIAL As Ordered ONE; +KETO5DRO27 OP; -LIDOCAINE 1% SDV 30ML VIAL As Ordered ONE; +LISI10TA22 PO; -LISI10TA4 PO; +PANT40TA29 PO; +REFR0.5D8 OP; +REST0.057 OP
--- NOTE | 2020-10-15 10:15 | REPMRS ---
Patient History The patient states she had a clinical breast exam in 06/25 No known family history of cancer. Took hormonal contraceptives for 1 year. Took estrogen for 6 months. Took progesterone for 6 months. Digital Woman Screen Mammo: October 15, 2020 - Exam #: [id number] Bilateral CC and MLO view(s) were taken. Technologist: Sharron Hurley, Technologist Prior study comparison: September 14, 2019, bilateral digital woman screen mammo performed at [facility]. August 15, 2018, bilateral digital woman screen mammo performed at [facility]. August 10, 2017, digital woman screen mammo performed at [facility]. FINDINGS: There are scattered fibroglandular densities. The Volpara volumetric breast density category is:B. There is a pacemaker power plant projecting over the left axilla on the MLO view. There has been no change in the appearance of the mammogram from the prior studies. There is a mild amount of scattered fibroglandular density which is fairly symmetric. There is no interval development of dominant mass, architectural distortion, or grouped microcalcification suggestive of malignancy. 3-D tomosynthesis shows no additional findings. Assessment: BI-RADS/ACR category 2 mammogram. Benign Findings. Recommendation Routine screening mammogram of both breasts in 1 year (for women over age 40). This patient's [facility] Lifetime Breast Cancer Risk is estimated at 4.9 %. This mammogram was interpreted with the aid of an FDA-approved computer-aided dectection system. Electronically Signed By: Nixon Rivera MD 10/15/20 [id number]
--- NOTE | 2020-10-15 10:32 | DEXAMM ---
INDICATION: M85.80 [facility] DISRD OF BONE DENSITY AND STRUCTURE. COMPARISON: The most recent comparison prior study is from August 10, 2017. The most remote is February 15, 2006.. TECHNIQUE: Bone density was measured using dual-energy x-ray absorptionmetry (DEXA). FINDINGS: AP SPINE L1-L4 BMD 1.076 g/cm2 Young Adult T-Score -1.0 Age Matched Z-Score 0.7. LT FEMUR, TOTAL BMD 1.042 g/cm2 Young Adult T-Score 0.3 Age Matched Z-Score 1.8. LT NECK BMD 1.004 g/cm2 Young Adult T-Score -0.2 Age Matched Z-Score 1.5. RT FEMUR, TOTAL BMD 1.035 g/cm2 Young Adult T-Score 0.2 Age Matched Z-Score 1.7. RT NECK BMD 1.022 g/cm2 Young Adult T-Score -0.1 Age Matched Z-Score 1.6. IMPRESSION: There is low bone density of the spine. There is normal bone density of the left hip. There is normal bone density of the right hip. The density of the spine has increased 10.7% since the initial exam on February 15, 2006. The density of the spine increased 0.6% since most recent exam on August 10, 2017. The density of the left hip has decreased 6.5% since initial exam on February 15, 2006. The density of the left hip has decreased 1.7% since most recent exam on August 10, 2017. The density of the right hip has decreased 4.4% since the initial exam on February 15, 2006. The density of the right hip has decreased 2.5% since the most recent exam on August 10, 2017. FOLLOW-UP: Recommendation for the next bone density exam: 2 years. <Electronically signed by Nixon Rivera > 10/15/20 [id number]
== END ==
LOC: M WHC 08:30
PROVIDERS: ATTEND Internal Medicine
DX: Z12.31 Encounter for screening mammogram for malignant neoplasm of breast (principal); M85.80 Other specified disorders of bone density and structure, unspecified site; R92.2 Inconclusive mammogram; M85.88 Other specified disorders of bone density and structure, other site

== ENCOUNTER → 2021-06-23 | Outpatient (REF) | payer MEDICARE, OTHER | LOC: M LAB REF 16:22 | PROVIDERS: ATTEND Internal Medicine | DX: I10 Essential (primary) hypertension (principal); D35.00 Benign neoplasm of unspecified adrenal gland ==

== ENCOUNTER → 2021-07-01 | Outpatient (REF) | payer MEDICARE, OTHER ==
[2021-07-01 12:34] LABS: APPEARANCE, URINE MANUAL HAZY (CLEAR); BILIRUBIN, URINE MANUAL NEGATIVE (NEGATIVE); BLOOD URINE MANUAL POSITIVE (NEGATIVE); COLOR, URINE MANUAL YELLOW (YELLOW); GLUCOSE, URINE (UA) MANUAL NEGATIVE (NEGATIVE); KETONE, URINE MANUAL NEGATIVE (NEGATIVE); LEUKOCYTE ESTERASE, URINE MAN POSITIVE (NEGATIVE); NITRITE, URINE MANUAL NEGATIVE (NEGATIVE); PH,URINE MAN 5.5 UNITS (5.0 - 7.0); PROTEIN, URINE MANUAL TRACE mg/dL (NEGATIVE); UROBILINOGEN, URINE MANUAL NORMAL (NORMAL)
[2021-07-01 12:38] LABS: AMORPHOUS SEDIMENT, URINE SMALL AMOUNT (NEGATIVE); BACTERIA, URINE SMALL AMOUNT; HYALINE CAST, URINE NONE SEEN /lpf (0-1); SQUAMOUS EPITHELIAL CELL URINE SMALL AMOUNT /hpf (SMALL AMT)
== END ==
LOC: M LAB REF 12:19
PROVIDERS: ATTEND Internal Medicine
DX: N39.0 Urinary tract infection, site not specified (principal)

== ENCOUNTER → 2021-07-24 | Outpatient (REF) | payer MEDICARE, OTHER | LOC: M LAB REF 12:11 | PROVIDERS: ATTEND Internal Medicine | DX: I95.1 Orthostatic hypotension (principal) ==

== ENCOUNTER → 2021-08-07 | Outpatient (REF) | payer MEDICARE, OTHER | LOC: M LAB REF 12:20 | PROVIDERS: ATTEND Internal Medicine | DX: I95.1 Orthostatic hypotension (principal) ==

== ENCOUNTER → 2021-11-26 | Outpatient (CLI) | payer MEDICARE, OTHER | LOC: M WHC 11:30 | PROVIDERS: ATTEND Physician Assistant | DX: M79.639 Pain in unspecified forearm (principal) ==

== ENCOUNTER → 2021-12-18 | Outpatient (CLI) | payer MEDICARE, OTHER ==
[2021-12-18 12:59] LABS: HEMATOCRIT 43.5 % (36.0-47.0); HEMOGLOBIN 14.2 g/dl (12.0-15.5); MEAN CORPUSCULAR HEMOGLOBIN 30.9 pg (27.0-33.0); MEAN CORPUSCULAR HGB CONC 32.6 g/dl (32.0-36.5); MEAN CORPUSCULAR VOLUME 94.8 fl (80.0-96.0); PLATELET COUNT, AUTOMATED 217 10^3/uL (150-450); RED BLOOD COUNT 4.59 10^6/uL (4.00-5.40); WHITE BLOOD COUNT 6.2 10^3/uL (4.0-10.0)
[2021-12-18 13:25] LABS: ALBUMIN 3.6 GM/DL (3.2-5.2); ALT/SGPT 46 U/L (12-78); BILIRUBIN,TOTAL 0.3 MG/DL (0.2-1.0); BLOOD UREA NITROGEN 19 MG/DL (7-18); CALCIUM LEVEL 9.7 MG/DL (8.8-10.2); CARBON DIOXIDE LEVEL 28 MEQ/L (21-32); CHLORIDE LEVEL 109 MEQ/L (98-107); CREATININE FOR GFR 0.65 MG/DL (0.55-1.30); GLOMERULAR FILTRATION RATE > 60.0 (>39); GLUCOSE, FASTING 89 MG/DL (70-100); SODIUM LEVEL 144 MEQ/L (136-145); TOTAL PROTEIN 7.1 GM/DL (6.4-8.2)
== END ==
LOC: M WUC 10:48
PROVIDERS: ATTEND Physician Assistant
DX: I11.9 Hypertensive heart disease without heart failure (principal)

== ENCOUNTER → 2022-01-02 | Outpatient (REF) | payer MEDICARE, OTHER | LOC: M LAB REF 11:59 | PROVIDERS: ATTEND Internal Medicine | DX: I95.1 Orthostatic hypotension (principal) ==

== ENCOUNTER → 2022-08-11 | Outpatient (CLI) | payer MEDICARE, OTHER | LOC: M WHC 14:42 | PROVIDERS: ATTEND Internal Medicine | DX: Z12.31 Encounter for screening mammogram for malignant neoplasm of breast (principal); M81.0 Age-related osteoporosis without current pathological fracture ==

== ENCOUNTER → 2022-09-25 | Outpatient (CLI) | payer MEDICARE, OTHER | LOC: M WUC 13:28 | PROVIDERS: ATTEND Internal Medicine | DX: J45.909 Unspecified asthma, uncomplicated (principal); G47.33 Obstructive sleep apnea (adult) (pediatric) ==

== ENCOUNTER → 2022-10-22 | Outpatient (CLI) | payer MEDICARE, OTHER | LOC: M WHC 11:03 | PROVIDERS: ATTEND Internal Medicine | DX: M81.0 Age-related osteoporosis without current pathological fracture (principal) ==

== ENCOUNTER → 2023-02-23 | Outpatient (REF) | payer MEDICARE, OTHER | LOC: M LAB REF 12:09 | PROVIDERS: ATTEND Internal Medicine | DX: D35.00 Benign neoplasm of unspecified adrenal gland (principal) ==

== ENCOUNTER 2023-04-15 08:33 | Day surgery (SDC) | payer MEDICARE, OTHER ==
[~2023-04-15] VITALS: Ht 165.1 cm; Wt 113.3 kg
[~2023-04-15 08:33] MED LIST changes: +ALLE10TA28 PO; +BREO1INH INH; +CYAN500T14 PO; +NS 1,000 ML IV ONE; +PROA1AER2 INH; -REFR0.5D8 OP; -REST0.057 OP; +REST0.057 OU; +ROLA1CHW2 PO; +THIA100T7 PO; +VITA100093 PO; +ZADI1DRO OU; +[UNRECOGNIZED DRUG - OTHER]
[2023-04-15 10:26] VITALS: TEMP 96.6
[2023-04-15 10:36] VITALS: BP 125/60; O2SAT 96
== END 2023-04-15 10:36 | disposition home or self-care (01) ==
LOC: M OPP 08:33
PROVIDERS: ATTEND Surgery
DX: R19.5 Other fecal abnormalities (principal); K57.30 Diverticulosis of large intestine without perforation or abscess without bleeding; Z79.51 Long term (current) use of inhaled steroids; Z79.899 Other long term (current) drug therapy; Z88.0 Allergy status to penicillin; Z88.6 Allergy status to analgesic agent; Z91.040 Latex allergy status

== ENCOUNTER → 2023-08-26 | Outpatient (CLI) | payer MEDICARE, OTHER ==
[~2023-08-26] MED LIST changes: -NS 1,000 ML IV ONE
== END ==
LOC: M WHC 09:25
PROVIDERS: ATTEND Internal Medicine
DX: Z12.31 Encounter for screening mammogram for malignant neoplasm of breast (principal)

== ENCOUNTER → 2023-09-01 | Outpatient (CLI) | payer MEDICARE, OTHER | LOC: M RAD 11:17 | PROVIDERS: ATTEND Physician Assistant | DX: R22.42 Localized swelling, mass and lump, left lower limb (principal) ==

== ENCOUNTER → 2023-09-01 | Outpatient (CLI) | payer MEDICARE, OTHER | LOC: M RAD 11:14 | PROVIDERS: ATTEND Physical Medicine & Rehabilitation | DX: R22.42 Localized swelling, mass and lump, left lower limb (principal) ==

== ENCOUNTER → 2024-08-28 | Outpatient (CLI) | payer MEDICARE, OTHER | LOC: M WHC 10:34 | PROVIDERS: ATTEND Internal Medicine | DX: Z12.39 Encounter for other screening for malignant neoplasm of breast (principal) ==

== ENCOUNTER → 2024-12-11 | Outpatient (CLI) | payer MEDICARE, OTHER | LOC: M WUC 13:03 | PROVIDERS: ATTEND Internal Medicine | DX: R05.9 Cough, unspecified (principal) ==

== ENCOUNTER → 2025-02-28 | Outpatient (CLI) | payer MEDICARE, OTHER ==
[2025-02-28 13:32] LABS: CALCIUM LEVEL 9.8 MG/DL (8.3-10.6); CREATININE FOR GFR 0.92 MG/DL (0.55-1.30); GLOMERULAR FILTRATION RATE 65.3 (>39); POTASSIUM SERUM 4.2 MMOL/L (3.5-5.1)
== END ==
LOC: M LAB 11:39
PROVIDERS: ATTEND Physician Assistant
DX: I11.0 Hypertensive heart disease with heart failure (principal); I50.9 Heart failure, unspecified

== ENCOUNTER → 2025-03-15 | Outpatient (CLI) | payer MEDICARE, OTHER ==
[~2025-03-15] MED LIST changes: +DEXTROSE 5% XX ONE; +DOXYCYCLINE HYCLATE XX ONE; +HYDR12.510 PO; -HYDR12CA PO; +MIDAZOLAM INJ 2 MG/2 ML VIAL IV PRN; +MINI XX ONE; +NS (Normal Saline) 0.9% 1,000 ML IV SCH; +SODIUM CHLORIDE 0.9% 1000 ML XX SCH; +SPIR-10 PO
[2025-03-15] MEDS: DOXYCYCLINE HYCLATE 100 MG/10 ML VIAL XX ONE (09:40)
[2025-03-15 12:00] VITALS: TEMP 98.8; O2SAT 96
[2025-03-15] MEDS: LIDOCAINE 1% MDV 20 ML VIAL SC SCH (12:00)
[2025-03-15 13:07] VITALS: BP 173/82
== END ==
LOC: M IRPRO 11:50
PROVIDERS: ATTEND Internal Medicine
DX: S80.02XA Contusion of left knee, initial encounter (principal); X58.XXXA Exposure to other specified factors, initial encounter; Y92.9 Unspecified place or not applicable
CPT/HCPCS: 49185; 76942; 87070; 87205; J1271

== ENCOUNTER → 2025-03-27 | Outpatient (CLI) | payer MEDICARE, OTHER ==
[~2025-03-27] MED LIST changes: -HYDR12.510 PO; +HYDR12CA PO; -SODIUM CHLORIDE 0.9% 1000 ML XX SCH; -SPIR-10 PO
[2025-03-27 14:00] VITALS: BP 185/88; TEMP 98.3; O2SAT 97
[2025-03-27] MEDS: LIDOCAINE 1% MDV 20 ML VIAL SC SCH (15:23)
[2025-03-27] MEDS: DOXYCYCLINE HYCLATE 100 MG/10 ML VIAL IV ONE (15:24)
== END ==
LOC: M IRPRO 13:49
PROVIDERS: ATTEND Radiology Diagnostic Radiology
DX: M25.462 Effusion, left knee (principal)
CPT/HCPCS: 49185; 76942; J1271

== ENCOUNTER → 2025-04-12 | Outpatient (CLI) | payer MEDICARE, OTHER ==
[~2025-04-12] MED LIST changes: +HYDR12.510 PO; -HYDR12CA PO; -MIDAZOLAM INJ 2 MG/2 ML VIAL IV PRN; -NS (Normal Saline) 0.9% 1,000 ML IV SCH; +SPIR-10 PO
[2025-04-12 12:05] VITALS: BP 152/83; TEMP 97.7; O2SAT 96
[2025-04-12] MEDS: LIDOCAINE 1% MDV 20 ML VIAL SC SCH (14:03)
[2025-04-12] MEDS: DOXYCYCLINE HYCLATE 100 MG/10 ML VIAL XX ONE (14:03)
== END ==
LOC: M IRPRO 11:57
PROVIDERS: ATTEND Radiology Diagnostic Radiology
DX: M25.462 Effusion, left knee (principal)
CPT/HCPCS: 49185; J1271

== ENCOUNTER → 2025-04-23 | Outpatient (REF) | payer MEDICARE, OTHER ==
[~2025-04-23] MED LIST changes: -DEXTROSE 5% XX ONE; -DOXYCYCLINE HYCLATE XX ONE; -MINI XX ONE
[2025-04-23 18:54] LABS: CALCIUM LEVEL 10.1 MG/DL (8.3-10.6); CARBON DIOXIDE LEVEL 30.0 MMOL/L (20-31); CHLORIDE LEVEL 103.0 MMOL/L (98-107); CREATININE FOR GFR 0.85 MG/DL (0.55-1.30); GLOMERULAR FILTRATION RATE 71.4 (>39); POTASSIUM SERUM 4.5 MMOL/L (3.5-5.1); SODIUM LEVEL 142.0 MMOL/L (136-145)
== END ==
LOC: M LABWUC 17:29
PROVIDERS: ATTEND Physician Assistant
DX: I11.0 Hypertensive heart disease with heart failure (principal); I50.9 Heart failure, unspecified

== ENCOUNTER → 2025-05-14 | Outpatient (CLI) | payer MEDICARE, OTHER ==
[~2025-05-14] MED LIST changes: +DEXTROSE 5% XX ONE; +DOXYCYCLINE HYCLATE XX ONE; +MINI XX ONE
[2025-05-14] MEDS: LIDOCAINE 1% MDV 20 ML VIAL SC SCH (13:35)
[2025-05-14] MEDS: DOXYCYCLINE HYCLATE 100 MG/10 ML VIAL XX ONE (13:40)
[2025-05-14 13:48] VITALS: BP 152/78; TEMP 97.7; O2SAT 99
== END ==
LOC: M IRPRO 13:29
PROVIDERS: ATTEND Radiology Diagnostic Radiology
DX: M96.842 Postprocedural seroma of a musculoskeletal structure following a musculoskeletal system procedure (principal)
CPT/HCPCS: 49185; 76942; J1271

== ENCOUNTER → 2025-06-05 | Outpatient (CLI) | payer MEDICARE, OTHER ==
[~2025-06-05] MED LIST changes: +CARDIAC STRESS TEST RESCUE BOX 1 KIT EA XX ONE; -DEXTROSE 5% XX ONE; -DOXYCYCLINE HYCLATE XX ONE; -MINI XX ONE
[2025-06-05 13:40] VITALS: BP 138/85; TEMP 97.7; O2SAT 97
[2025-06-05] MEDS: DOXYCYCLINE HYCLATE 100 MG/10 ML VIAL XX ONE (15:00)
[2025-06-05] MEDS: LIDOCAINE 1% MDV 20 ML VIAL SC ONE (15:00)
== END ==
LOC: M IRPRO 13:36
PROVIDERS: ATTEND Registered Nurse School
DX: L76.34 Postprocedural seroma of skin and subcutaneous tissue following other procedure (principal)
CPT/HCPCS: 49185; 76942; J1271

== ENCOUNTER → 2025-06-15 | Outpatient (CLI) | payer MEDICARE, OTHER ==
[~2025-06-15] MED LIST changes: -CARDIAC STRESS TEST RESCUE BOX 1 KIT EA XX ONE; +DOXYCYCLINE HYCLATE 100 MG/10 ML VIAL IC ONE; +LIDOCAINE 1% MDV 20 ML VIAL SC SCH
[2025-06-15 10:13] VITALS: BP 149/67; TEMP 97.8; O2SAT 97
== END ==
LOC: M IRPRO 09:16
PROVIDERS: ATTEND Registered Nurse School
DX: L76.34 Postprocedural seroma of skin and subcutaneous tissue following other procedure (principal); R22.42 Localized swelling, mass and lump, left lower limb

== ENCOUNTER → 2025-06-25 | Outpatient (CLI) | payer MEDICARE, OTHER ==
[~2025-06-25] MED LIST changes: -DOXYCYCLINE HYCLATE 100 MG/10 ML VIAL IC ONE; -LIDOCAINE 1% MDV 20 ML VIAL SC SCH
== END ==
LOC: M PLAIMG 09:31
PROVIDERS: ATTEND Physician Assistant
DX: I11.0 Hypertensive heart disease with heart failure (principal)

== ENCOUNTER → 2025-06-26 | Outpatient (CLI) | payer MEDICARE, OTHER ==
[~2025-06-26] MED LIST changes: +DOXY-440 PO; +DOXYCYCLINE HYCLATE 100 MG/10 ML VIAL IC ONE; +SODIUM CHLORIDE 0.9% 1000 ML XX SCH
[2025-06-26 11:05] VITALS: BP 150/90; TEMP 98.8; O2SAT 97
[2025-06-26] MEDS: SODIUM TETRADECYL SULFATE (1%) 20MG/2ML VIAL (SOTRADECOL) IV SCH (12:11)
[2025-06-26] MEDS: LIDOCAINE 1% MDV 20 ML VIAL SC SCH (12:11)
== END ==
LOC: M IRPRO 10:56
PROVIDERS: ATTEND Radiology Diagnostic Radiology
DX: L76.34 Postprocedural seroma of skin and subcutaneous tissue following other procedure (principal)

== ENCOUNTER → 2025-07-26 | Outpatient (CLI) | payer MEDICARE, OTHER ==
[~2025-07-26] MED LIST changes: -DOXYCYCLINE HYCLATE 100 MG/10 ML VIAL IC ONE; -SODIUM CHLORIDE 0.9% 1000 ML XX SCH
[2025-07-26 12:41] VITALS: BP 160/84; TEMP 98.5
[2025-07-26] MEDS: LIDOCAINE 1% MDV 20 ML VIAL SC SCH (12:50)
[2025-07-26] MEDS: SODIUM TETRADECYL SULFATE (1%) 20MG/2ML VIAL (SOTRADECOL) IV SCH (12:50)
== END ==
LOC: M IRPRO 12:26
PROVIDERS: ATTEND Radiology Diagnostic Radiology
DX: L76.34 Postprocedural seroma of skin and subcutaneous tissue following other procedure (principal)

== ENCOUNTER → 2025-07-31 | Outpatient (CLI) | payer MEDICARE, OTHER ==
[2025-07-31 12:36] VITALS: BP 180/85; TEMP 98.6; O2SAT 96
[2025-07-31] MEDS: LIDOCAINE 1% MDV 20 ML VIAL SC SCH (12:55)
== END ==
LOC: M IRPRO 12:22
PROVIDERS: ATTEND Radiology Diagnostic Radiology
DX: L76.34 Postprocedural seroma of skin and subcutaneous tissue following other procedure (principal)

== ENCOUNTER → 2025-08-27 | Outpatient (CLI) | payer MEDICARE, OTHER ==
[~2025-08-27] MED LIST changes: +SODIUM TETRADECYL SULFATE (1%) 20MG/2ML VIAL (SOTRADECOL) IV SCH
[2025-08-27 08:21] VITALS: BP 164/81; TEMP 98.4; O2SAT 98
[2025-08-27] MEDS: LIDOCAINE 1% MDV 20 ML VIAL SC SCH (08:46)
[2025-08-27] MEDS: DOXYCYCLINE HYCLATE 100 MG/10 ML VIAL IC ONE (09:00)
== END ==
LOC: M IRPRO 07:59
PROVIDERS: ATTEND Radiology Diagnostic Radiology
DX: L76.34 Postprocedural seroma of skin and subcutaneous tissue following other procedure (principal)
CPT/HCPCS: 10160; 49406; C1729; J1271